=== PATIENT | male | born 1995 | race African-American/Black ===

== ENCOUNTER 2020-03-23 00:33 | Emergency (ER) | payer SELFPAY ==
[~2020-03-23] VITALS: Ht 177.8 cm; Wt 108.9 kg
[2020-03-23 00:42] VITALS: BP 109/76; Ht 177.8 cm; Wt 108.9 kg
== END 2020-03-23 00:54 | disposition home or self-care (01) ==
LOC: ED 00:33
DX: A05.9 Bacterial foodborne intoxication, unspecified (principal); R10.33 Periumbilical pain; R11.10 Vomiting, unspecified

== ENCOUNTER 2020-04-30 01:20 | Emergency (ER) | payer MEDICAID ==
[~2020-04-30] VITALS: Ht 177.8 cm; Wt 99.8 kg
[2020-04-30 01:25] VITALS: Ht 177.8 cm; Wt 99.8 kg
[2020-04-30 02:23] VITALS: BP 113/68
== END 2020-04-30 02:23 | disposition home or self-care (01) ==
LOC: ED 01:20
DX: S80.862A Insect bite (nonvenomous), left lower leg, initial encounter (principal); B35.3 Tinea pedis; W57.XXXA Bitten or stung by nonvenomous insect and other nonvenomous arthropods, initial encounter; Y93.89 Activity, other specified; Y92.89 Other specified places as the place of occurrence of the external cause; Y99.8 Other external cause status